=== PATIENT | female | born 1975 | race Hispanic/Latino ===

== ENCOUNTER 2025-06-23 13:16 | Emergency (ER) | payer BC ==
[~2025-06-23] VITALS: Ht 167.6 cm; Wt 113.9 kg
[2025-06-23 14:15] VITALS: PULSE 78; RESP 18; TEMP 98.9
[2025-06-23 14:48] LABS: BASOPHILS % 0.3 % (0.0-1.0); EOSINOPHILS % 0.6 % (0.0-6.0); LYMPHOCYTES % 11.4 % (18.0-39.1); MONOCYTES % 4.4 % (4.4-11.3); NEUTROPHILS % 83.0 % (38.7-80.0); RED CELL DISTRIBUTION WIDTH 14.1 % (11.7-14.4)
[2025-06-23 15:10] LABS: EST GLOMERULAR FILTRATION RATE 56.0 ML/MIN (>=60)
[2025-06-23 17:01] VITALS: BP 127/84; PULSE 74; RESP 18; TEMP 98.4; O2SAT 99
== END 2025-06-23 17:00 | disposition home or self-care (01) ==
LOC: ER 14:27
DX: R51.9 Headache, unspecified (principal); U09.9 Post COVID-19 condition, unspecified; H53.8 Other visual disturbances; I10 Essential (primary) hypertension; E78.5 Hyperlipidemia, unspecified; Z94.0 Kidney transplant status; R94.31 Abnormal electrocardiogram [ECG] [EKG]
CPT/HCPCS: 36415; 70450; 80053; 84484; 85025; 85379; 93005; 99284